=== PATIENT | female | born 1955 ===

== ENCOUNTER 2017-11-25 08:12 | Day surgery (SDC) | payer OTHER ==
[~2017-11-25 08:12] MED LIST: SYNTHROID75 MCG PO
[2017-11-25] MEDS ORDERED: PANADOL EXTRA500 MG PO (11:58)
== END 2017-11-25 15:05 | disposition home or self-care (01) ==
LOC: CIR.AMB 08:12
DX: N84.0 Polyp of corpus uteri (principal)

== ENCOUNTER 2017-12-01 14:14 | Emergency (ER) | payer OTHER ==
[~2017-12-01] VITALS: Ht 157.5 cm; Wt 53.5 kg
[~2017-12-01 14:14] MED LIST changes: +PANADOL EXTRA500 MG PO
[2017-12-02] MEDS ORDERED: BUTALB-ACETAMI1 EAC2 PO (03:47)
== END 2017-12-02 04:15 | disposition home or self-care (01) ==
LOC: ER 14:14
DX: G44.40 Drug-induced headache, not elsewhere classified, not intractable (principal); T41.3X5A Adverse effect of local anesthetics, initial encounter; Y92.89 Other specified places as the place of occurrence of the external cause

== ENCOUNTER 2024-06-12 08:39 | Outpatient (CLI) | payer OTHER ==
[~2024-06-12 08:39] MED LIST changes: +BUTALB-ACETAMI1 EAC2 PO
== END 2024-06-12 08:50 | disposition home or self-care (01) ==
LOC: TOM 08:39
PROVIDERS: ATTEND Internal Medicine Gastroenterology
DX: K56.50 Intestinal adhesions [bands], unspecified as to partial versus complete obstruction (principal); Z80.0 Family history of malignant neoplasm of digestive organs; R19.5 Other fecal abnormalities